=== PATIENT | female | born 1995 | race Caucasian/White ===

== ENCOUNTER 2023-01-22 11:45 | Emergency (ER) | payer OTHER ==
[2023-01-22 11:58] VITALS: BP 122/86; PULSE 78; RESP 18; TEMP 98.1; BMI 27.4
== END 2023-01-22 12:30 | disposition home or self-care (01) ==
LOC: FER 11:45
DX: S61.012A Laceration without foreign body of left thumb without damage to nail, initial encounter (principal); W26.8XXA Contact with other sharp object(s), not elsewhere classified, initial encounter
CPT/HCPCS: 99282-25